=== PATIENT | female | born 1990 | race African-American/Black ===

== ENCOUNTER 2016-09-11 23:00 | Emergency (ER) | payer SELFPAY ==
[~2016-09-11 23:00] MED LIST: AUGMENTIN200 MG/5 M PO; NORCO1 TAB PO
== END 2016-09-12 00:19 | disposition home or self-care (01) ==
LOC: ER 23:00
DX: S00.83XA Contusion of other part of head, initial encounter (principal); S00.81XA Abrasion of other part of head, initial encounter; F17.200 Nicotine dependence, unspecified, uncomplicated; Z79.899 Other long term (current) drug therapy; Y04.0XXA Assault by unarmed brawl or fight, initial encounter
CPT/HCPCS: 70450; 70486; 84703; 99284